=== PATIENT | female | born 1995 | race African-American/Black ===

== ENCOUNTER 2017-11-04 14:25 | Emergency (ER) | payer SELFPAY ==
[~2017-11-04] VITALS: Ht 157.5 cm; Wt 77.0 kg
[2017-11-04] MEDS ORDERED: ACETAMINOPHEN 325MG TABLET PO ONE (15:30)
[2017-11-04] MEDS ORDERED: PENICILLIN G BENZATHINE 1,200,000 UNITS/2ML SYR IM ONE (16:15)
[2017-11-04 16:27] VITALS: BP 117/64
== END 2017-11-04 16:53 | disposition home or self-care (01) ==
LOC: ER 14:25
DX: J02.9 Acute pharyngitis, unspecified (principal)
CPT/HCPCS: 96372; 99283; J0561

== ENCOUNTER 2017-11-05 23:43 | Emergency (ER) | payer SELFPAY ==
[~2017-11-05] VITALS: Ht 157.5 cm; Wt 77.0 kg
[2017-11-06] MEDS ORDERED: ACETAMINOPHEN 325MG TABLET ONE (00:05)
[2017-11-06] MEDS ORDERED: IBUPROFEN 600MG TABLET PO STA (06:09)
[2017-11-06 06:51] LABS: CHLORIDE 100 mEq/L (98-107)
[2017-11-06 06:53] LABS: BASOPHILS % 0.5 % (0.0-2.0); EOSINOPHILS % 0.2 % (0.0-5.0); HEMATOCRIT. 37.1 % (36.0-48.0); HEMOGLOBIN. 12.2 g/dL (12.0-16.0); MEAN CORPUSCULAR HEMOGLOBIN 27.6 pg (28.0-32.0); MEAN CORPUSCULAR VOLUME 83.8 fL (81.0-99.0); MEAN PLATELET VOLUME 8.4 fl (7.4-10.4); MONOCYTES % 13.4 % (2.0-8.0); NEUTROPHILS % 69.9 % (40.0-76.0); PLATELET 223 x1000/uL (130-400); RED BLOOD CELL COUNT 4.43 mill/uL (4.2-5.4); RED CELL DISTRIBUTION WIDTH 14.4 % (11.6-14.6)
[2017-11-06 06:54] LABS: KETONES URINE TRACE (NEGATIVE); LEUKOCYTE ESTERASE URINE 2+ (NEGATIVE); NITRITE URINE NEGATIVE (NEGATIVE); OCCULT BLOOD URINE 3+ (NEGATIVE); PROTEIN URINE 2+ (NEGATIVE); SPECIFIC GRAVITY URINE 1.019 (1.005-1.030)
[2017-11-06 07:00] LABS: CLARITY URINE CLOUDY (CLEAR); COLOR URINE BLOODY (YELLOW)
[2017-11-06 07:29] LABS: MONOTEST NEGATIVE (NEGATIVE)
[2017-11-06 09:01] VITALS: BP 118/65
== END 2017-11-06 09:02 | disposition home or self-care (01) ==
LOC: ER 11-06 01:51
DX: J02.9 Acute pharyngitis, unspecified (principal); N39.0 Urinary tract infection, site not specified
CPT/HCPCS: 36415; 71045; 80053; 81003; 81025; 85025; 86308; 87070; 87077; 87086; 87186; 87430; 99285